=== PATIENT | female | born 1955 | race Caucasian/White ===

== ENCOUNTER 2025-05-10 07:36 | Emergency (ER) | payer OTHER, MEDICAID, SELFPAY ==
[2025-05-10 07:37] VITALS: BP 162/96; PULSE 91; RESP 17; TEMP 36.6; O2SAT 95
[2025-05-10 07:55] VITALS: PULSE 93; RESP 18; O2SAT 95; BMI 43.0
--- NOTE | 2025-05-10 08:00 | PC.NURSE ---
GIANNI FROM HOME, LIVES WITH DAUGHTER AND SON-IN-LAW, WHO HELP HER WITH ALL HER ADLS. PER PT SHE IS UNABLE TO CARE FOR HERSELF ANYMORE. HAVING REPEAT FALLS, FELL AND BROKE BOTH WRIST, WAS TREATED AT [facility] FOR, HERE NOW FOR PLACEMENT. PT GCS 15.
--- NOTE | 2025-05-10 08:35 | XR_ITS ---
Examination: Wrist, right 3 views Technique: Wrist AP, oblique, lateral 3 views Date and time of exam: May 10, 2025 0858 hours INDICATIONS: Patient fell 2 days ago with injury to the wrist, wrist pain FINDINGS: Acute impacted fracture distal radial metaphysis, dorsal displacement of the distal fracture fragment Image quality reduced by the splint material Carpal bones appear intact IMPRESSION: Acute comminuted impacted fracture distal radial metaphysis
[2025-05-10 08:36] VITALS: PULSE 82
[2025-05-10] MEDS: SODIUM CHLORIDE 0.9% 1000 ML 1,000 ML 100 ML IV (09:56)
[2025-05-10 10:18] LABS: Basophils # (Auto) 0.1 Thou/mm3 (0.0-0.2); Basophils % (Auto) 1 % (0-2.5); Eosinophils # (Auto) 0.1 Thou/mm3 (0.0-0.5); Eosinophils % (Auto) 1 % (0-10); Hematocrit 37.7 % (36.0-46.0); Hemoglobin 12.1 g/dL (12.0-16.0); Immature Granulocytes Auto 0.06 Thou/mm3 (0.00-0.00); Lymphocytes # (Auto) 0.8 Thou/mm3 (1.0-4.8); Lymphocytes % (Auto) 9 % (10-50); Mean Corpuscular HGB Conc 32.1 g/dl (31.0-37.0); Mean Corpuscular Hemoglobin 28.9 pg (25.0-35.0); Mean Corpuscular Volume 90 fL (80-100); Monocytes # (Auto) 0.6 Thou/mm3 (0.0-0.8); Monocytes % (Auto) 8 % (0-12); Neutrophils # (Auto) 6.8 Thou/mm3 (1.8-7.7); Neutrophils % (Auto) 82 % (37-80); Nucleated Red Blood Cell # 0.00 Thou/mm3 (0.00-0.00); Nucleated Red Blood Cell % 0 /100 WBC (0); Platelet Count 238 Thou/mm3 (140-440); RDW Standard Deviation 44.1 fL (36.4-46.3); Red Blood Count 4.18 Miln/mm3 (4.00-5.20); White Blood Count 8.3 Thou/mm3 (3.6-11.0)
--- NOTE | 2025-05-10 10:24 | PC.PT ---
PT eval complete. Please see evaluation for details.
[2025-05-10 10:43] LABS: Alanine Aminotransferase 12 U/L (10-49); Albumin, Serum 4.0 gm/dL (3.4-4.8); Albumin/Globulin Ratio 1.5 (1.2-2.2); Alkaline Phosphatase 81 U/L (46-116); Anion Gap 11 (7-16); Aspartate Amino Transferase 24 U/L (0-34); BUN/Creatinine Ratio 19 Ratio (12-20); Bilirubin,Total 0.4 mg/dL (0.3-1.2); Blood Urea Nitrogen 15 mg/dL (9-23); Calcium 9.0 mg/dL (8.3-10.6); Calcium (Corrected) 9.0 mg/dL (8.5-10.1); Carbon Dioxide 26.1 mMol/L (20.0-31.0); Chloride 104 mMol/L (98-107); Creatinine (Component) 0.8 mg/dL (0.6-1.3); Estimated Creatinine Clearance 100.1 mL/min (>60); Globulin 2.7 gm/dL (2.3-3.5); Glucose 102 mg/dL (74-106); Osmolality,Calculated 282 (275-295); Potassium 4.1 mMol/L (3.4-5.1); Sodium 141 mMol/L (136-145); Total Protein 6.7 gm/dL (5.7-8.2); eGFR > 60 See Note
[2025-05-10 10:51] LABS: INR 1.1 (0.9-1.3); Prothrombin Time 12.1 Seconds (9.0-12.2)
--- NOTE | 2025-05-10 11:13 | PC.SS ---
Patient is a 69 year old female presenting to the hospital for weakness. STACKER met with patient at bedside, role and reason for visit was explained. Patient confirmed demographic information and stated that she lives with her daughter Patti Conley PH:[phone]. Patient stated that in case she is unable to make medical decision on her own she would like her daughter to make them. Patient stated that her PCP is Dr. Jackson in [place], she stated she had an appointment scheduled for 05/10/25. Her pharmacy of choice is [facility]. Patient stated that she has home oxygen 2L, provided by [facility] and has a walker and bedside commode. Patient stated that her d/c plan is to go to short term rehab. Patient stated that she has hx of depression and anxiety and is taking medication. Patient stated that she is currently taking Prozac, cephalexin, atarax, and lamactil. STACKER will follow up with SNF referral. PCP: Dr. Jackson Decision maker: Patti Conley, daughter. D/C: SNF
--- NOTE | 2025-05-10 11:27 | PD.EDWEAK ---
ED Weakness RME/HPI General Chief complaint: Weakness Stated complaint: WEAKNESS Time Seen by Provider: 05/10/25 07:59 Arrival date/time: 05/10/25 07:36 Limitations: no limitations RME / HPI RME / HPI Narrative: 69 year old female with history of hypertension and pulmonary embolism in 2019 presents to the ED BIBA from home for evaluation of displaced right arm splint and global weakness today. Reports this morning while trying to get out of bed she was unable to due to feeling globally weak. Patient also reports she suffered a ground level fall 2 days ago and was evaluated at [facility] where she was diagnosed with a right wrist fracture; a splint was placed and discharged home. States while using her arms in attempt to get off of the bed, the splint slid half way off. In the ED, patient complains of global weakness, pain to the lumbar back, and right wrist pain. Patient additionally expressed concerns of not having enough strength to care for herself at home and is requesting rehab facility placement. Related Data Home Medications ?Medication ?Instructions ?Recorded ?Confirmed buspirone 30 mg tablet 30 mg PO TID 03/30/20 08/21/23 gabapentin 600 mg tablet 600 mg PO TID 03/30/20 05/13/21 lamotrigine 100 mg tablet 100 mg PO BID 03/30/20 08/21/23 sertraline 100 mg tablet 100 mg PO BID 03/30/20 08/21/23 acetaminophen 500 mg tablet (Pain 500 mg PO Q6H PRN Headache 08/21/23 08/21/23 Reliever Extra Strength (acetaminophen)) hydroxyzine HCl 25 mg tablet 25 mg PO Q6H PRN Anxiety 08/21/23 08/21/23 ibuprofen 600 mg tablet 600 mg PO TID PRN Headache 08/21/23 08/21/23 losartan 100 mg tablet 100 mg PO DAILY 08/21/23 08/21/23 Previous Rx's ?Medication ?Instructions ?Recorded apixaban 2.5 mg tablet (Eliquis) 5 mg (2 x 2.5 mg) PO BID #60 tabs 04/04/20 albuterol sulfate 90 mcg/actuation 2 puff inhalation QID PRN 05/14/21 aerosol inhaler shortness of breath or wheezing #18 grams Allergies Allergy/AdvReac Type Severity Reaction Status Date / Time No Known Allergies Allergy Verified 05/10/25 07:59 Review of Systems Review of Systems Systems Reviewed: All systems reviewed, normal except as documented Past Medical History Past Medical History CARDIAC: Positive Hypercholesterolemia and Hypertension RESPIRATORY: Positive Pulmonary Embolism GASTROINTESTINAL: Positive Gastrointestinal Disorders, Gastroesophageal Reflux Disease and Obesity REPRODUCTIVE: Positive Previous Pregnancies MUSCULOSKELETAL: Positive Musculoskeletal Disorders and Scoliosis PSYCHO/SOCIAL: Positive Depression and Anxiety OTHER HISTORY: Positive Blood Transfusions Surgical History SURGICAL: Positive Section Social History SMOKING STATUS: Never smoker ED Exam General Limitations: Present no limitations General appearance: Present alert and in no apparent distress Head Head exam: Present atraumatic, normocephalic and normal inspection Eye Eye exam: Present normal appearance, PERRL and EOMI ENT ENT exam: Present normal exam, normal oropharynx and mucous membranes moist Neck Neck exam: Present normal inspection, full ROM and trachea midline Chest Chest inspection: Present normal inspection and symmetric chest wall rise Respiratory Respiratory exam: Present normal lung sounds bilaterally Cardiovascular Cardiovascular exam: Present regular rate, normal rhythm and normal heart sounds Abdominal Exam Abdominal exam: Present soft and normal bowel sounds Extremities Exam Extremities exam: Present full ROM and other (Rigth arm splint is displaced about 2/3 down the arm) Back Exam Back exam: Present full ROM and other (1+ L4-L5 tenderness ) Neurological Exam Neurological exam: Present alert, oriented X3 and CN II-XII intact Psychiatric Psychiatric exam: Present normal affect and normal mood Skin Skin exam: Present warm, dry, intact and normal color Course Quality Measures none Orders Category Date Time Status Environmental Technician NOW Care 05/10/25 08:[address] Sql Developer NOW Care 05/10/25 08:37 Active Continuous Pulse Oximetry NOW Care 05/10/25 08:36 Completed EKG (ED ONLY) *Do not use* NOW Care 05/10/25 08:36 Completed Insert IV NOW Care 05/10/25 08:36 Active Splint / Immobilizer STAT Care 05/10/25 11:34 Active Referral Physical Therapy Stat Cons 05/10/25 08:[address] lumbar spine wo con Stat Exams 05/10/25 11:40 Completed EKG (ED Only) Stat Exams 05/10/25 08:36 Ordered XR wrist comp RT min 3V Stat Exams 05/10/25 08:35 Completed CBC Stat Lab 05/10/25 09:54 Completed Comprehensive Metabolic Panel Stat Lab 05/10/25 09:54 Completed Prothrombin Time with INR Stat Lab 05/10/25 09:54 Completed Urinalysis Stat Lab 05/10/25 08:36 Ordered Morphine* Inj Med 05/10/25 12:29 Discontinued 4 mg IVP X1 ONE Ondansetron Inj [Zofran Inj] Med 05/10/25 12:29 Discontinued 4 mg IVP X1 ONE Sodium Chloride 0.9% 1000 ml [Ns] 1,000 ml Med 05/10/25 08:35 Active IV 100 mls/hr Vital Signs Vital signs: Vital Signs Temperature 97.9 F 05/10/25 07:37 Pulse Rate 91 05/10/25 07:37 Respiratory Rate 17 05/10/25 07:37 Blood Pressure 162/96 H 05/10/25 07:37 Pulse Oximetry (%) 95 05/10/25 07:37 Oxygen Delivery Method Room Air 05/10/25 07:37 Pulse ox is 95% on room air which is adequate. PROCEDURES: Splint Fabrication: Clinician Made Type: Sugar Tong (right short arm sugar tong ) Reason for Splint: Optimal Positioning, Pain Management and Minimize Deformities Site condition: Bruised and Pain Modifications: None Circulation Distal to Splint: Yes Movement Distal to Splint: Yes Senation Distal to Splint: Yes Tolerance: Tolerates Well Weakness MDM Narrative MDM Narrative:: IHailey am scribing for and in the presence of Dr. Mcguire. Patient data External records reviewed:: [facility] previous records and EMS form Clinical information provided by:: patient and EMS Social determinants that could affect healthcare access:: none Patient has the following chronic illnesses:: HTN, hx of pulmonary embolism in 2019 How is presenting disease/condition affected by chronic disease/condition?: exacerbated by Evaluation data The following diagnostics were reviewed and interpreted by me:: lab results (CBC and CMP are within normal limits ) and radiology exam(s) Lab and/or radiology exams considered but not ordered:: None Interpretation Summary: Ordering Physician: Luis Enrique Mcguire MD Date of Service: 05/10/25 Procedure(s): XR wrist comp RT min 3V Accession Number(s): [id number] cc: Luis Enrique Mcguire MD; Renetta Concepcion NP; Nilo Wong MD~ Examination: Wrist, right 3 views Technique: Wrist AP, oblique, lateral 3 views Date and time of exam: May 10, 2025 0858 hours INDICATIONS: Patient fell 2 days ago with injury to the wrist, wrist pain FINDINGS: Acute impacted fracture distal radial metaphysis, dorsal displacement of the distal fracture fragment Image quality reduced by the splint material Carpal bones appear intact IMPRESSION: Acute comminuted impacted fracture distal radial metaphysis Dictated By: Nilo Wong MD Signed By: <Electronically signed by Nilo Wong MD in [place]> 05/10/25 0941 Ordering Physician: Luis Enrique Mcguire MD Date of Service: 05/10/25 Procedure(s): CT lumbar spine wo con Accession Number(s): [id number] cc: Luis Enrique Mcguire MD; Renetta Concepcion BOTTOM STEEP TENDER; Nilo Wong MD~ Examination: CT lumbar spine, without contrast. 2-D sagittal reconstructions. 2-D coronal reconstructions. 3-D reconstructions. Date and time of exam:May 10, 2025, 1145 hours INDICATIONS: Patient fell today with into the lower back, lower back pain CTDI: vol (mGy):59.9 DLP: (mGycm):20 Technique: Multiple 1.25 mm axial sections of the lumbar spine without intravenous contrast have been obtained. 2-D sagittal and coronal reconstructions have been obtained. 3-D reconstructions have been obtained. Low dose protocols were performed. One or more of the following dose reduction techniques were used; automated exposure control, adjustment of the mA and/or KV according to patient size, use of iterative reconstruction technique. Findings: Severe osteopenia Lumbar levoscoliosis 47 degrees Advanced disc narrowing L4-L5 No lumbar fracture No spondylolisthesis Lumbar pedicles, laminae transverse and posterior spinous processes intact Sacral segments appear intact No focal lumbar disc protrusion IMPRESSION: No acute lumbar fracture Dictated By: Nilo Wong MD Signed By: <Electronically signed by Nilo Wong MD in [place]> 05/10/25 1239 Medications / Prescriptions Medications or Prescriptions considered but not ordered:: None Medication administrations:: Medication Administration History Sodium Chloride (Ns) 1,000 mls @ 100 mls/hr IV .Q10H ONE Stop: 05/10/25 18:34 Last Admin: 05/10/25 09:56 Dose: 100 mls/hr Documented By: TM Discontinued Medications Morphine Sulfate (Morphine Sulf Inj 4 Mg/Ml Vial) 4 mg IVP X1 ONE Stop: 05/10/25 12:30 Last Admin: 05/10/25 13:46 Dose: 4 mg Documented By: TM Ondansetron HCl (Ondansetron Inj 2 Mg/Ml Inj 2 Ml) 4 mg IVP X1 ONE; Protocol Stop: 05/10/25 12:30 Last Admin: 05/10/25 13:46 Dose: 4 mg Documented By: TM See above Consultations Consultation(s) initiated? (list below): No Diagnosis Weakness Differential Diagnosis: anemia, hypothyroidism, sepsis, dehydration and other (s/p fall, wrist pain ) Most likely diagnosis given after review of the tests above:: s/p fall right wrist fracture Musculoskeletal pain Admission Indicated Admission indicated?: not indicated Explain why admission is indicated or not indicated:: Txfer to SNF Admission Request Was there a request for admission?: No Disposition Plan Disposition Plan: Transfer (SNF) Discharge Plan Plan Patient Disposition: Xfer Skilled Nsg Fac (SNF) Prescriptions/Referrals Prescriptions/Med Rec: No Action gabapentin 600 mg Tablet 600 mg PO TID sertraline 100 mg Tablet 100 mg PO BID buspirone 30 mg Tablet 30 mg PO TID lamotrigine 100 mg Tablet 100 mg PO BID Eliquis 2.5 mg Tablet 5 mg PO BID Qty: 60 0RF albuterol sulfate 90 mcg/actuation HFA aerosol inhaler 2 puff inhalation QID PRN (Reason: shortness of breath or wheezing) Qty: 18 0RF acetaminophen [Pain Reliever ES(acetaminophn)] 500 mg tablet 500 mg PO Q6H PRN (Reason: Headache) ibuprofen 600 mg tablet 600 mg PO TID PRN (Reason: Headache) losartan 100 mg tablet 100 mg PO DAILY Patient Comments: take 1 tablet by mouth once daily hydroxyzine HCl 25 mg tablet 25 mg PO Q6H PRN (Reason: Anxiety) Patient Comments: take 1 tablet by mouth every 6 hours if needed for anxiety Referrals: Renetta Concepcion NP [Primary Care Provider] - In 1 week Problem List Clinical Impression: Fracture of right wrist, Status post fall, Musculoskeletal pain Patient/Caregiver Discharge Instructions Education Materials: ED Fracture, Wrist, General Additional Instructions: Follow-up with orthopedics on Tuesday. You can return to the emergency department sooner if symptoms worsen or if you notice any new, concerning issues. Print Language: [place] Stand Alone Forms: Karen Award Info., Patient Portal Info Letter
--- NOTE | 2025-05-10 11:40 | XR_ITS ---
Examination: CT lumbar spine, without contrast. 2-D sagittal reconstructions. 2-D coronal reconstructions. 3-D reconstructions. Date and time of exam:May 10, 2025, 1145 hours INDICATIONS: Patient fell today with into the lower back, lower back pain CTDI: vol (mGy):59.9 DLP: (mGycm):20 Technique: Multiple 1.25 mm axial sections of the lumbar spine without intravenous contrast have been obtained. 2-D sagittal and coronal reconstructions have been obtained. 3-D reconstructions have been obtained. Low dose protocols were performed. One or more of the following dose reduction techniques were used; automated exposure control, adjustment of the mA and/or KV according to patient size, use of iterative reconstruction technique. Findings: Severe osteopenia Lumbar levoscoliosis 47 degrees Advanced disc narrowing L4-L5 No lumbar fracture No spondylolisthesis Lumbar pedicles, laminae transverse and posterior spinous processes intact Sacral segments appear intact No focal lumbar disc protrusion IMPRESSION: No acute lumbar fracture
--- NOTE | 2025-05-10 11:49 | PC.CC ---
MATERIALS INSPECTOR completed PASRR it is a level 2 waiting for the PASSR to be closed out. MATERIALS INSPECTOR, submitted referral to local SNF via [facility].
--- NOTE | 2025-05-10 13:01 | PC.ADMIT ---
Mariela with [facility] reports [facility] is able to accept patient. SANDRA made telephone contact with Amy at [facility] who reports she will not provide authorization as patient did not work with PT. SANDRA explained to Amy that the patient was in too much pain at the time of eval. She reports to go through the secondary. SANDRA provided update to Mariela who reports she will be submitting it to [facility] who is the secondary. ROPE CLEANER sent PASSR to Mariela via [employer] and asked for her to return call once the referral for auth was sent to [facility] so this quality analyst/technical writer could follow up.
--- NOTE | 2025-05-10 13:40 | PC.CC ---
[facility] reports they are now not able to accept patient as [employer] Denied auth and will need a prison auth from secondary. ASSISTANT BUYER resent packet via [employer]
--- NOTE | 2025-05-10 13:43 | PC.CC ---
Patient reports she is okay going else where as NAILING MACHINE FEEDER explained ot her that [facility] not able to take her do to insurance reasons and bed availability.
[2025-05-10] MEDS: MORPHINE SULF INJ 4 MG/ML VIAL IVP (13:46)
[2025-05-10] MEDS: ONDANSETRON INJ 2 MG/ML INJ 2 ML 4 MG IVP (13:46)
--- NOTE | 2025-05-10 13:46 | PC.CC ---
[facility] patient ruight now.
--- NOTE | 2025-05-10 14:01 | PC.CC ---
SANDRA Rene made telephone contact [facility] and reservation number was provided [phone].
[2025-05-10 14:12] VITALS: BP 145/78; PULSE 86; RESP 24; TEMP 36.6; O2SAT 90
--- NOTE | 2025-05-10 14:41 | PC.SS ---
CONTACT LENS ASSISTANT spoke to patient at bedside and inquired if she would like CONTACT LENS ASSISTANT to call daughter to let her know her ETA, patient confirmed. CONTACT LENS ASSISTANT placed phone call to patients daughter Patti, CONTACT LENS ASSISTANT informed patients daughter of ETA and SNF placement to [facility], patient daughter confirmed.
--- NOTE | 2025-05-10 15:32 | PC.NURSE ---
ATTEMPTED REPORT AT THIS TIME, WAS FORWARDED BUT NO ANSWER
== END 2025-05-10 16:34 | disposition skilled nursing facility (03) ==
PROVIDERS: Emergency Provider Family Medicine; PCP Nurse Practitioner Family
DX: S52.591A Other fractures of lower end of right radius, initial encounter for closed fracture (principal); M54.50 Low back pain, unspecified; I10 Essential (primary) hypertension; E78.00 Pure hypercholesterolemia, unspecified; Z86.711 Personal history of pulmonary embolism; Z79.01 Long term (current) use of anticoagulants; Z79.899 Other long term (current) drug therapy; W18.30XA Fall on same level, unspecified, initial encounter
CPT/HCPCS: 29125; 36415; 72131; 73110; 80053; 81001; 85025; 85610; 93005; 96374; 96375; 99284; J2270; J2405; J7030